=== PATIENT | female | born 1980 | race African-American/Black ===

== ENCOUNTER 2019-10-30 15:45 | Emergency (ER) | payer OTHER, SELFPAY ==
--- NOTE | ~2019-10-30 | XR_ITS ---
XR lumbar spine min 4V 10/30/2019 16:36 Indication: Back pain Procedure: 5 views lumbar spine Comparison: No prior studies for comparison. Findings: Vertebral body heights are maintained. No significant disc narrowing. No fracture, subluxat ion or spondylolisthesis. Pedicles intact. Sacral foramen are symmetric. Impression: 1: No acute abnormality of the lumbar spine. Reviewed, dictated and finalized at location A. Impression: 1: No acute abnormality of the lumbar spine.
[2019-10-30 16:03] VITALS: BP 118/81; PULSE 88; RESP 17; TEMP 37.1; O2SAT 100
--- NOTE | 2019-10-30 16:09 | ED.GENADULT ---
HPI - General Adult General Chief complaint: Back Pain/Injury Stated complaint: back pain Time Seen by Provider: 10/30/19 16:09 Source: patient Mode of arrival: ambulatory Limitations: no limitations History of Present Illness HPI narrative: 39-year-old female patient presents to the [facility] with complaints of lower mid back pain that started last night. Patient states that she was at work and was helping moving a lot large patient states that few minutes afterwards she felt some pain to the lower middle back. Patient states she also felt some tightness to her right thigh. Patient states she has continued to be able to ambulate and denies any numbness or tingling down the legs. Denies any loss of bowel or bladder control. Patient states she has been taking ibuprofen for the pain. Related Data Allergies Allergy/AdvReac Type Severity Reaction Status Date / Time SEASONAL ALLERGENS AdvReac Unknown Unknown Uncoded 10/30/19 16:13 Review of Systems Review of Systems: Narrative: CONSTITUTIONAL: Denies fever, chills, or sweats. EYES: Denies visual changes, redness, or discharge. ENT: Denies rhinorrhea, congestion, sore throat, or otalgia. CARDIOVASCULAR: Denies chest pain, palpitations, or edema. RESPIRATORY: Denies cough or dyspnea. GASTROINTESTINAL: Denies abdominal pain, nausea, vomiting, or diarrhea. GENITOURINARY: Denies dysuria or hematuria. SKIN: Denies rash or itching. MUSCULOSKELETAL: Positive low metal back pain, denies joint pain, or myalgia. NEUROLOGIC: Denies headache, numbness, or weakness. PSYCHIATRIC: Denies anxiety or depression. FOR[facility]LY [facility] Surgical History Surgical History (Updated 10/30/19 @ 16:11 by NBA Blandon) H/O inguinal hernia repair Umbilical x2 History of section History of cholecystectomy Social History Social History (Updated 10/30/19 @ 16:11 by NBA Blandon) Smoking status: Current every day smoker Gender identity (if verbalized by the patient): Female Comments At the time of my signature I agree with nursing past medical history, surgical, social, and family history. There is no relevant family history pertinent to the presenting complaint. Exam Narrative: Exam Narrative: GENERAL: Well-appearing, well-nourished, and in no acute distress. HEAD: Normocephalic, atraumatic. EYES: PERRLA and EOMI. ENT: Nares clear, no rhinorrhea or epistaxis. Mucous membranes moist. NECK: Supple. No lymphadenopathy CHEST: Clear to auscultation. No respiratory distress. HEART: Regular rate and rhythm. No murmur heard. Normal peripheral pulses. ABDOMEN: Soft, nontender, nondistended, normal active bowel sounds. EXTREMITIES: Normal range of motion. No edema. BACK: Patient is able to ambulated without assistance. Pt is seated on the chair in no obvouis distress. No surface trauma noted. No muscle tenderness to Palpation. No spasm or mass. Patient does have some tenderness noted to the L1/L2 on palpation. No CVA tenderness to percussion. No saddle anesthesia. ROM: able to stand erect. Normal flexion but does complain of pain when coming up from the flexion position, no pain with extension, Lateral bending and rotation without limitation or complaint of pain. SKIN: Warm, dry, no rash. NEURO: No focal deficits. Alert and oriented x3. Course Reevaluation(s) Reevaluation #1: Reevaluated patient after her x-ray had resulted. Discussed with her that the lumbar spine looks good there is no evidence of any type of bulging disc or fractures. Discussed with her this was most likely some type of muscle strain that caused the back pain. Discussed with patient we will discharge her home with some muscle relaxants and heat she can also take Tylenol and ibuprofen with this. Patient states that she is supposed to be working tonight. Discussed with her I will go ahead and write her off of tonight but if she needs additional time off or restrictions she has to see her primary care doctor for this. Patient
== END 2019-10-30 16:50 | disposition home or self-care (01) ==
PROVIDERS: Emergency Provider Nurse Practitioner Family
DX: S39.012A Strain of muscle, fascia and tendon of lower back, initial encounter (principal); X50.0XXA Overexertion from strenuous movement or load, initial encounter; Y99.0 Civilian activity done for income or pay; F17.200 Nicotine dependence, unspecified, uncomplicated
CPT/HCPCS: 72110; 99213; G0463